=== PATIENT | male | born 1975 | race American Indian/Alaskan Native ===

== ENCOUNTER 2024-08-11 08:27 | Emergency (ER) | payer SELFPAY ==
[2024-08-11 08:32] VITALS: TEMP 98.2
--- NOTE | 2024-08-11 08:42 | ED ---
Fall HPI - General Chief Complaint: Fall Stated Complaint: Fall, right wrist injury Time Seen by Provider: 08/11/24 08:32 Source: patient, RN notes reviewed Mode of arrival: ambulatory Limitations: no limitations - History of Present Illness Initial Comments: This is a 48-year-old male who presents to the emergency department for a right wrist injury. Patient states that he tripped on a bottom step at a hotel last night and when he fell, he landed on his right wrist. He scraped his head, but denies any substantial impact to the head aside from the abrasion. Denies any loss of consciousness. Not taking any blood thinners. The only area that is currently bothering him is his right wrist. Reports limited range of motion due to pain and swelling. He has tried icing it without much relief. MD Complaint: fall - Related Data Previous Rx's Medication Instructions Recorded HYDROcodone/APAP 5-325MG [[place] 1 tab PO Q6HR PRN 3 Days #12 tab 08/11/24 5-325] Ibuprofen [Motrin] 800 mg PO Q8H PRN #30 tab 08/11/24 Ondansetron Odt [Zofran Odt] 4 mg PO Q8HR PRN #15 tab 08/11/24 Allergies Allergy/AdvReac Type Severity Reaction Status Date / Time No Known Allergies Allergy Verified 08/11/24 08:31 Review of Systems ROS Statement: Those systems with pertinent positive or pertinent negative responses have been documented in the HPI. ROS Other: All systems not noted in ROS Statement are negative. Past Medical History Past Medical History: No Reported History History of Any Multi-Drug Resistant Organisms: None Reported Past Surgical History: Orthopedic Surgery Past Psychological History: No Psychological Hx Reported Smoking Status: Never smoker Past Alcohol Use History: Occasional Past Drug Use History: Marijuana General Exam Limitations: no limitations General appearance: alert, in no apparent distress Head exam: Present: normocephalic, other (Superficial abrasion to the left side of the forehead. No active bleeding.) Eye exam: Present: normal appearance, PERRL, EOMI. Absent: scleral icterus, conjunctival injection, periorbital swelling Respiratory exam: Present: normal lung sounds bilaterally. Absent: respiratory distress, wheezes, rales, rhonchi, stridor Cardiovascular Exam: Present: regular rate, normal rhythm Extremities exam: Present: other (Swelling and tenderness to the right wrist. Range of motion limited by pain. 2+ radial pulses) Neurological exam: Present: alert, oriented X3, CN II-XII intact Psychiatric exam: Present: normal affect, normal mood Course Vital Signs 08/11/24 08/11/24 08:29 10:52 Temperature 98.2 F Pulse Rate 84 88 Respiratory 20 17 Rate Blood Pressure 179/108 142/104 O2 Sat by Pulse 97 97 Oximetry Procedures - Orthopedic Splinting/Casting Injury #1 Side: right Upper Extremity Injury Location: wrist Upper Extremity Immobilizer: volar splint, fiberglass cast Medical Decision Making - Medical Decision Making This is a 48-year-old male who presents to the emergency department for a right wrist injury. Was pt. sent in by a medical professional or institution? @ -No Did you speak to anyone other than the patient for history? @ -No Did you review nursing and triage notes? @ -Yes, and I agree, it is accurate with regards to the patient's symptoms. Were old charts reviewed? @ -No Differential Diagnosis? @ -Differential Musculoskeletal Muscular strain, contusion, ligament sprain, fracture, arthritis, septic arthritis, bursitis, cellulitis, muscle spasm, nerve compression, DVT, arterial occlusion, herpes zoster, electrolyte abnormality, tumor.... This is not meant to be in all inclusive list EKG interpreted by me (3pts min.)? @ -Not obtained X-rays interpreted by me (1pt min.)? @ -X-ray of the right wrist obtained. My interpretation identifies a distal radius fracture. CT interpreted by me (1pt min.)? @ -Not obtained U/S interpreted by me (1pt. min.)? @ -Not obtained What testing was considered but not performed? (CT, X-rays, U/S, labs)? Why? @ -None What meds were considered but not given? Why? @ -None Did you discuss the management of the patient with other professionals? @ -No Did you reconcile home meds? @ -No Was smoking cessation discussed for >3mins.? @ -No Was critical care preformed (if so, how long)? @ -No Were there social determinants of health that impacted care today? How? (Homele ssness, low income, unemployed, alcoholism, drug addiction, transportation, low edu. Level, literacy, decrease access to med. care, snf, rehab)? @ -No Was there de-escalation of care discussed even if they declined? (Discuss DNR or withdrawal of care, Hospice)? @ -No What co-morbidities impacted this encounter? (DM, HTN, Smoking, COPD, CAD, Canc er, CVA, Hep., AIDS, mental health diagnosis, sleep apnea, morbid obesity)? @ -None Was patient admitted / discharged? @ -Discharged. X-ray of the right wrist demonstrates a comminuted distal radius fracture and an avulsion of the ulnar styloid. Volar splint was applied and an arm sling was provided. Of note, patient only had a small superficial abrasion to the forehead. He did not sustain any substantial impact that would warrant the need for a CT scan. Tetanus vaccine is up-to-date. Prescription for ibuprofen and [place] provided with dosing instructions reviewed. Also advised ice and elevation. Case management made the patient an appointment with orthopedics on 08/14. Patient discharged home in stable condition. Case discussed with ED attending, Dr. Chavis. Return precautions reviewed in depth, the patient is instructed to return to the emergency department with any new, worsening, or concerning symptoms. Patient verbalized understanding. Undiagnosed new problem with uncertain prognosis? @ -None Drug Therapy requiring intensive monitoring for toxicity (Heparin, Nitro, Insulin, Cardizem)? @ -None Were any procedures done? @ -Right volar splint application Diagnosis/symptom? @ -Fall, right distal radius fracture Acute, or Chronic, or Acute on Chronic? @ -Acute Uncomplicated (without systemic symptoms) or Complicated (systemic symptoms)? @ -Uncomplicated Side effects of treatment? @ -None Exacerbation, Progression, or Severe Exacerbation] @ -Not applicable Poses a threat to life or bodily function? @ -Will limit use of the right arm for the mean time. - Radiology Data Radiology results: report reviewed, image reviewed Disposition Clinical Impression: Fall, Fracture of right distal radius, Fracture of right ulnar styloid, Forehead abrasion Disposition: HOME SELF-CARE Instructions (If sedation given, give patient instructions): Wrist Fracture in Adults (ED), Splint Care (ED) Additional Instructions: Return to the emergency department with any new, worsening, or concerning symptoms. Alternate with ibuprofen and Tylenol as needed for pain relief. Take the [place] sparingly when your pain is the most severe. You can take the Zofran up to every 8 hours as needed if you develop any nausea. Follow up with orthopedics as scheduled on 08/14. Prescriptions: Ibuprofen [Motrin] 800 mg PO Q8H PRN #30 tab PRN Reason: Pain HYDROcodone/APAP 5-325MG [[place] 5-325] 1 tab PO Q6HR PRN 3 Days #12 tab PRN Reason: Pain Ondansetron Odt [Zofran Odt] 4 mg PO Q8HR PRN #15 tab PRN Reason: Nausea And Vomiting Is patient prescribed a controlled substance at d/c from ED?: Yes When asked, does pt state using other controlled substances?: No If prescribed controlled substance>3 days was MAPS reviewed?: Prescribed <3 Days Referrals: Jasmeet Chapin MD [STAFF PHYSICIAN] - 08/14/24 10:40 am (Andersen pay up fron to see doctor- Will be $200. Please bring ID card) None,Stated [Primary Care Provider] - 1-2 days Forms: Area PCPs Time of Disposition: 10:44
[2024-08-11] MEDS: IBUPROFEN 800 MG TAB PO STA (08:44)
[2024-08-11] MEDS: HYDROcodone/APAP 5-325MG 1 EACH TAB PO STA (08:45)
--- NOTE | 2024-08-11 09:25 | XR ---
EXAMINATION TYPE: XR wrist complete RT DATE OF EXAM: 08/11/2024 9:11 AM COMPARISON: None. CLINICAL INDICATION: Male, 48 years old with history of Injury, pain TECHNIQUE: 4 view(s) obtained. FINDINGS: There is a longitudinal comminuted fracture of the distal radius with intra-articular extension. Ulna r styloid avulsion is present. Radiocarpal junction appears preserved. No additional fractures are evident. Mild diffuse soft tissue swelling is present IMPRESSION: 1. Comminuted fracture predominantly with a longitudinal component and intra-articular extension in the distal radius. 2. Avulsion of the ulnar styloid. [facility], , 08/11/2024 9:22 AM
[2024-08-11 10:53] VITALS: BP 142/104; PULSE 88; RESP 17
== END 2024-08-11 10:53 | disposition home or self-care (01) ==
LOC: EC 08:27
DX: S52.501A Unspecified fracture of the lower end of right radius, initial encounter for closed fracture (principal); S52.611A Displaced fracture of right ulna styloid process, initial encounter for closed fracture; S00.81XA Abrasion of other part of head, initial encounter; W01.0XXA Fall on same level from slipping, tripping and stumbling without subsequent striking against object, initial encounter; Y92.59 Other trade areas as the place of occurrence of the external cause
CPT/HCPCS: 99283